=== PATIENT | male | born 1985 | race Two or more races ===

== ENCOUNTER 2020-02-07 00:30 | Emergency (ER) | payer MEDICAID ==
[~2020-02-07] VITALS: Ht 175.3 cm; Wt 97.5 kg
[2020-02-07 01:21] VITALS: BP 147/97
== END 2020-02-07 03:50 | disposition home or self-care (01) ==
LOC: ER 00:34
DX: M79.651 Pain in right thigh (principal); R20.0 Anesthesia of skin; F17.210 Nicotine dependence, cigarettes, uncomplicated
CPT/HCPCS: 93971

== ENCOUNTER 2021-09-13 18:11 | Emergency (ER) | payer MEDICAID ==
[~2021-09-13] VITALS: Ht 175.3 cm; Wt 102.1 kg
[2021-09-13 18:13] VITALS: BP 126/81
== END 2021-09-13 20:05 | disposition left against medical advice (07) ==
LOC: ER 18:19
DX: M54.50 Low back pain, unspecified (principal); Z53.21 Procedure and treatment not carried out due to patient leaving prior to being seen by health care provider

== ENCOUNTER 2021-09-15 00:08 | Emergency (ER) | payer MEDICAID ==
[~2021-09-15] VITALS: Ht 175.3 cm; Wt 102.1 kg
[2021-09-15 03:50] VITALS: BP 136/94
[2021-09-15] MEDS ORDERED: KETOROLAC TROMETH 60MG/2ML VIAL IM ONE (04:15)
[2021-09-15] MEDS ORDERED: DexAMETHasone SOD PHOS 10MG/1ML VIAL INJ IM ONE (04:15)
[2021-09-15] MEDS ORDERED: NAP500T PO (04:17)
== END 2021-09-15 05:29 | disposition home or self-care (01) ==
LOC: ER 00:08
DX: M54.59 Other low back pain (principal); F17.210 Nicotine dependence, cigarettes, uncomplicated
CPT/HCPCS: 96372; 99284; J1100; J1885